=== PATIENT | male | born 1985 | race Caucasian/White ===

== ENCOUNTER → 2017-08-13 | Day surgery (SDC) | payer OTHER ==
[2017-06-25 08:36] VITALS: BMI 28.0
--- NOTE | 2017-06-25 09:11 | PAT Medication Instructions ---
Service Date Jun 25, 2017. Current Home Medication List Podofilox (Condylox), 1 APPL TOP UD PRN for PRN Medication Instructions For Your Scheduled Surgery - Hold the following medications 24 hours prior to surgery (unless otherwise per surgeon) Podofilox (Condylox), 1 APPL TOP UD PRN for PRN If you have any questions please call us at [phone] or [phone] or [phone]
--- NOTE | 2017-06-25 09:34 | DIAGNOSTIC IMAGING REPORT ---
CHEST PREADMISSION(PA/LAT) CLINICAL HISTORY: Preoperative evaluation. COMPARISON STUDY: No previous studies for comparison. FINDINGS: Lung volumes are normal. Lungs are clear. No pneumothorax or pleural effusion is present. Cardiac size is normal. Mediastinal contours are normal. There is no evidence of pulmonary edema. IMPRESSION: No acute cardiopulmonary findings. Electronically signed by: Giorgio Raymond M.D. 06/25/2017 9:32 AM Dictated Date/Time: 06/25/2017 9:32 AM
[2017-06-25 09:59] LABS: BASO % 0.9 %; BASO ABS # 0.06 K/uL (0-0.2); COMPLETE YES; HEMATOCRIT 46.6 % (42-52); IG% 0.3 %; LYMPH % 24.8 %; LYMPH ABS # 1.65 K/uL (1.2-3.4); MEAN CELL VOLUME 85.5 fL (80-100); MEAN CORPUSCULAR HEMOGLOBIN 30.6 pg (25-34); MEAN CORPUSCULAR HGB CONC 35.8 g/dl (32-36); MEAN PLATELET VOLUME 10.4 fL (7.4-10.4); MONO % 13.7 %; NEUT % 58.3 %; PLATELET COUNT 273 K/uL (130-400); RED BLOOD COUNT 5.45 M/uL (4.7-6.1); WHITE BLOOD COUNT 6.66 K/uL (4.8-10.8)
[2017-06-25 10:00] LABS: URINE APPEARANCE CLEAR (CLEAR); URINE BILIRUBIN NEG (NEG); URINE COLOR YELLOW; URINE NITRITE NEG (NEG); URINE PH 5.5 (4.5-7.5); URINE SPECIFIC GRAVITY 1.015 (1.000-1.030); UROBILINOGEN NEG (NEG)
[2017-06-25 10:10] LABS: MANUAL MICROSCOPIC REQUIRED? NO; REVIEW REQ? NO
[2017-06-25 10:41] LABS: BUN/CREATININE RATIO 10.7 (10-20); CALCIUM 9.5 mg/dl (8.5-10.1); CREATININE 0.91 mg/dl (0.60-1.40); POTASSIUM 4.3 mmol/L (3.5-5.1)
[~2017-08-13] VITALS: Ht 188 cm; Wt 100.8 kg
[~2017-08-13] MED LIST: ATROPINE SULFATE 0.1 MG/ML 5ML SYR IV PRN; BACI500O11 TOP; BACITRACIN OINT 15 GM TUBE ONE; BUPIVACAINE 0.5 % 5 MG/1 ML MPF 30ML VIAL ONE; CEFAZOLIN 2000 MG/60 ML D5W IV SCH; CEPH500C2 PO; EpHEDrine SULFATE INJ 50 MG/ML AMP IV PRN; FENTANYL CITRATE INJ 50 MCG/1 ML 2 ML VIAL IV PRN; LACTATED RINGER'S 1000ML 1,000 ML IV SCH; ONDANSETRON INJ 2 MG/ML 2 ML VIAL IV PRN; OXYC7.5T65 PO; OXYCODONE/ACETAMINOPHEN 5-325 TAB PO PRN; [UNRECOGNIZED DRUG - CODE] TOP
--- NOTE | 2017-08-13 09:01 | History & Physical Bridge Note ---
H&P Re-Evaluation Bridge Note: I have examined the patient, reviewed the History & Physical and in the interval since the performance of the History & Physical I have noted the following changes of clinical significance: No changes noted
[2017-08-13 09:08] VITALS: BP 127/80; PULSE 82; TEMP 36.4; O2SAT 100; Ht 188 cm; Wt 100.8 kg
--- NOTE | 2017-08-13 09:21 | Discharge Instructions ---
Discharge Instructions Date of Service Aug 13, 2017. Admission Reason for Admission: Condyloma Discharge Discharge Diagnosis / Problem: Condyloma s/p resection / fulguration Discharge Goals Goal(s): Improve function, Improve disease control, Therapeutic intervention Activity Recommendations Activity Limitations: as noted below Lifting Limitations: no more than 25 pounds, gradually increase as tolerated ( over 3 days) Exercise/Sports Limitations: rest today, gradually increase as tolerated (over 2 days) May Resume Sexual Activity: after follow-up appointment Shower/Bathe: tomorrow (may shower, no tub bath, apply bacitracin) . Instructions / Follow-Up Instructions / Follow-Up Apply Bacitracin ointment to incision three times a day Follow-up in office as scheduled Discharge Diet Recommended Diet: Regular Diet Procedures Procedures Performed: Resection and fulguration of condyloma Pending Studies Studies pending at discharge: yes List of pending studies: Pathology check Medical Emergencies . Who to Call and When: Medical Emergencies: If at any time you feel your situation is an emergency, please call 911 immediately. . Non-Emergent Contact Non-Emergency issues call your: Urologist Call Non-Emergent contact if: you have a fever, temperature is above 101, your pain is not controlled, your pain is worsening, your pain is unusual for you, your pain is concerning you, wound has increased drainage, wound has increased redness, wound has increased pain, you have any medication questions . . "Provider Documentation" section prepared by Daniel Reza. . VTE Core Measure Inpt VTE Proph given/why not?: SCD's [place] Drug Monitoring Program Search Results: patient reviewed within database, no issues identified
--- NOTE | 2017-08-13 12:24 | Anesthesiology Progress Note ---
Anesthesia Post Op Note Date & Time Aug 13, 2017 at 12:24 Vital Signs Pain Intensity: 0 Vital Signs Past 12 Hours Date Time Temp Pulse Resp B/P (MAP) Pulse Ox O2 Delivery O2 Flow Rate FiO2 08/13/17 12:22 36.4 08/13/17 12:17 60 19 08/13/17 12:17 60 19 122/61 100 08/13/17 12:12 59 23 08/13/17 12:12 61 23 08/13/17 12:11 115/68 08/13/17 12:08 72 14 97 08/13/17 12:08 65 14 08/13/17 12:07 100/71 08/13/17 12:03 67 24 100 08/13/17 12:03 69 24 08/13/17 12:02 141/72 08/13/17 12:00 68 16 93 08/13/17 12:00 65 16 08/13/17 11:57 124/64 08/13/17 11:55 67 12 08/13/17 11:55 73 12 99 08/13/17 11:51 142/47 08/13/17 11:50 71 23 08/13/17 11:50 70 23 98 08/13/17 11:45 68 15 08/13/17 11:45 69 15 99 08/13/17 11:41 126/67 08/13/17 11:40 75 08/13/17 11:40 75 98 08/13/17 11:40 36.1 76 18 126/67 99 Room Air 08/13/17 09:08 36.4 82 16 127/80 (96) 100 Room Air Notes Mental Status: alert / awake / arousable, participated in evaluation Pt Amnestic to Procedure: Yes Nausea / Vomiting: adequately controlled Pain: adequately controlled Airway Patency, RR, SpO2: stable & adequate BP & HR: stable & adequate Hydration State: stable & adequate Anesthetic Complications: no major complications apparent
[2017-08-13 12:30] VITALS: BP 131/57; PULSE 63; TEMP 36.5; O2SAT 18; O2SAT 99
[2017-08-13 13:00] VITALS: BP 140/61; PULSE 79; O2SAT 99
--- NOTE | 2017-08-13 13:04 | [facility] Post Operative Brief Note ---
Immediate Operative Summary Operative Date Aug 13, 2017. Pre-Operative Diagnosis Genital Condyloma Post-Operative Diagnosis Same Procedure(s) Performed Resection and Electrocautery Ablation of Condyloma Surgeon Dr. Caren Reza Geotechnical Laboratory Technician Surgeon(s) None Estimated Blood Loss 5 CC Findings Numerous scattered genital condyloma resected or fulgurated with no residual lesions noted Specimens A: Condyloma Drains NA Anesthesia GALMA + local Complication(s) None Disposition Recovery Room / PACU
[2017-08-13 13:30] VITALS: BP 138/58; PULSE 74; TEMP 36.2; O2SAT 99
--- NOTE | 2017-08-13 15:42 | [facility] Operative Report ---
Operative Report Operative Date Aug 13, 2017. Pre-Operative Diagnosis Genital Condyloma Post-Operative Diagnosis Same Procedure(s) Performed Resection and Electrocautery Ablation of Condyloma Surgeon Dr. Caren Reza Rate Analyst Surgeon(s) None Estimated Blood Loss 5 CC Findings No residual condyloma noted Specimens A: Condyloma Drains NA Anesthesia GALMA + local Complication(s) None Disposition Recovery Room / PACU Indications Patient is a 32-year-old male with a history of genital condyloma. He 's been treated with topical therapy with improvement of his burden but desires to have his remaining lesions removed. Risk of scarring and discomfort in the postoperative period is reviewed. Please see H&P for further details. Patient is covered with intravenous antibiotics and SCDs were used for DVT prophylaxis. Description of Procedure Patient was properly identified and brought into the operative suite after identification of appropriate consent of the chart. General anesthesia with laryngeal mask was initiated and patient was prepped and draped in the standard fashion for this procedure. Full timeout procedure was followed. Using loupe magnification and suction paired cautery the patient's condyloma were addressed in a systematic fashion. Small isolated lesions were fulgurated using electrocautery. Larger clusters of lesions were excised and sent for pathologic analysis. Skin and base was fulgurated and small skin incisions closed using 3-0 chromic interrupted sutures. Larger clusters of condyloma at the patient's circumcision incision as well as on the lateral aspect of the right scrotum were addressed in this fashion. Perineal lesions were also cleared. All lesions identified in the office were addressed with no perianal lesions or other genital lesions being identified after completion of the case. Skin incisions were well closed. Generous bacitracin application to the areas of fulguration an incision was performed at the end of the case. No significant exposure to intraoperative smoke from fulguration was present thanks to the paired suction. After this was complete anesthesia was reversed and patient was transferred to recovery room in stable condition. Follow-up care: Patient will be discharged home with a prescription for bacitracin ointment, pain medication and short course of oral antibiotics. Wound care is reviewed. Patient instructed to contact our service with any postoperative difficulties or concerns. Postoperative appointment is confirmed. I attest to the content of the Intraoperative Record and any orders documented therein. Any exceptions are noted below.
== END | disposition home or self-care (01) ==
LOC: C.ACU 07:34
PROVIDERS: ATTEND Urology
DX: A63.0 Anogenital (venereal) warts (principal); I10 Essential (primary) hypertension; Z82.49 Family history of ischemic heart disease and other diseases of the circulatory system; Z87.820 Personal history of traumatic brain injury; Z80.51 Family history of malignant neoplasm of kidney; Z87.891 Personal history of nicotine dependence